=== PATIENT | female | born 1975 ===

== ENCOUNTER 2018-02-17 06:18 | Day surgery (SDC) | payer BC ==
[2018-02-08 13:41] VITALS: BMI 27.9
[2018-02-17 06:51] VITALS: RESP 18; O2SAT 100
[2018-02-17] MEDS ORDERED: Lidocaine 2% MPF (5 ml) Inj INFIL ONE (07:14)
[2018-02-17] MEDS ORDERED: Bupivacaine HCl 0.5% PF (30 ml) Inj IJ ONE (07:14)
[2018-02-17] MEDS ORDERED: ceFAZolin 2 GM in Sodium Chloride 0.9% 100 ML IVPB ONE (07:14)
[2018-02-17] MEDS ORDERED: Propofol 10 mg/ml Inj (20 ML) ONE ×2 (07:15→08:32)
[2018-02-17] MEDS ORDERED: Phenylephrine 10 mg/ml Inj ONE (07:15)
[2018-02-17] MEDS ORDERED: Midazolam 2 MG/2 ML VIAL ONE (07:15)
[2018-02-17] MEDS ORDERED: Succinylcholine 200 mg/10 ml Inj IV ONE (07:15)
[2018-02-17] MEDS ORDERED: ePHEDrine 50 mg/ml Inj ONE (07:15)
--- NOTE | 2018-02-17 07:23 | CP.PCM.PN ---
Subjective - Date & Time of Evaluation Date of Evaluation: 02/17/18 Time of Evaluation: 07:18 - Subjective Subjective: Podiatry progress note for attending Dr. Cadena: 42 y/o F patient with no PMH seen and evaluated preoperativly for left Bunion and HT correction. patient states that she has the bunion since long time and it bothers her. Patient states that she is aware of her surgery today. Patient confirmed her fasting status today. Patient denies any other pedal complaint. Patient denies any recent F/N/V/C or SOB. PMH: None PSH: B/l varicose veins. Allergies: none. Social Hx: Denies smoking, EtOH use or illicit drug use. Objective - Vital Signs/Intake and Output Vital Signs (last 24 hours): Temp Pulse Resp BP Pulse Ox 97.7 F 52 L 18 122/81 100 02/17/18 06:49 02/17/18 06:54 02/17/18 06:49 02/17/18 06:49 02/17/18 06:49 - Medications Medications: Current Medications Bupivacaine HCl (Marcaine 0.5% Pf (30 Ml)) 1 ml IJ ONCE ONE Stop: 02/17/18 07:15 Cefazolin Sodium 2 gm/ Sodium (Chloride) 100 mls @ 100 mls/hr IVPB ONCE ONE; Protocol Stop: 02/17/18 08:13 Sodium Chloride 1,000 ml/ IV (SUPPLIES) 1,000 mls @ 4,708.26 mls/hr IV ONCE ONE Stop: 02/17/18 07:26 Lidocaine HCl (Lidocaine 2% 20ml Vial) 1 ml INFIL ONCE ONE Stop: 02/17/18 07:15 - Constitutional Appears: Well, Non-toxic, No Acute Distress - Head Exam Head Exam: ATRAUMATIC, NORMOCEPHALIC - Extremities Exam Additional comments: Left LE focused exam: Vasc: DP/PT 2/4. cap refill < 3 sec in all digits. Temp gradient warm to cool from proximal to distal. No edema. Neuro: gross and protective sensations are intact.Derm: No open lesions, No clinical signs of active infection. Derm: No open lesions, No clinical signs of active infection. MSK: muscle power intact 5/5 in all groups. Passive and active ROM of ankle J, STJ and MTJ are WNL. Hypermobile 1st ray. HAV deformity. - Neurological Exam Neurological Exam: Alert, Awake, Oriented x3 - Psychiatric Exam Psychiatric exam: Normal Affect, Normal Mood Assessment and Plan - Assessment and Plan (Free Text) Assessment: 41 y/o F patient seen and evaluated at the bed side preoperatively for left Bunion and HT correction. Plan: Patient seen and evaluated at the bedside Pt was explained procedure and post-operative course Pt understands all risks, benefits and Pt was seen and examined in SDS Pt NPO status was confirmed All Pre-op testing and clearance was in the chart Pt has exhausted all conservative treatment at this time and is opting for surgical inteAll pt's questions were answered to satisfaction No guarantees were made Benefits, risks and complications of procedure explained to the patient Pt will follow-up with Dr. randolph in her office upon discharge.
--- NOTE | 2018-02-17 07:27 | CP.SDSHP ---
Same Day Surgery H & P - History Proposed Procedure: Left Lapidus, left 2nd Met osteotomy and correction of left 2nd hammer toe Pre-Op Diagnosis: Left Bunion and 2nd hammer toe. - Previous Medical/Surgical History Previous Surgical History: B/L varicose viens surgery - Allergies Allergies: Allergies No Known Allergies Allergy (Verified 02/17/18 06:29) - Physical Exam Vital Signs: Vital Signs 02/17/18 02/17/18 06:49 06:54 Temperature 97.7 F Pulse Rate 52 L 52 L Respiratory 18 Rate Blood Pressure 122/81 O2 Sat by Pulse 100 Oximetry - {Optional Preform as Required} Integument: Other (Left HAV. Hammer toe) - Date & Time Date: 02/17/18 Time: 07:27 Short Stay Discharge - Short Stay Discharge Admitting Diagnosis/Reason for Visit: M20.11 Disposition: HOME/ ROUTINE Referrals: Tristen Oh [Primary Care Provider] - Additional Instructions (Diet, Activity): -Patient in good/stable condition for discharge home -Pt to resume medications per medical reconciliation -Resume regular diet - Please keep dressing clean, dry, & intact to surgical site -Use plastic bag over bandage for showering -Strict NWB to the left LE. Ambulate using crutches -Call clinic if you see signs of infection (redness, swelling, malodor) -Please make an appointment to see Dr. Hopson in office within 1 week for post-op check Progress Note/Discharge Note with Instructions: - Patient evaluated bedside in recovery s/p left Lapidus, Left 2nd met Leena osteotomy, Left 2nd HT correction. - After surgical procedure patient in NAD. - (+) Void, (+) Appetite - Capillary refill time <3s and NVS intact. - Patient denies complaints at this time. - Post operative instructions and plan of care explained to patient at length. - Patient. acknowledges verbal understanding. - Patient stable for Discharge per podiatric surgery
[2018-02-17] MEDS ORDERED: ceFAZolin IV 2 gm in Dextrose 2 GM/50 ML BAG IVPB ONE (07:45)
[2018-02-17] MEDS ORDERED: Lactated Ringer's 1,000 ML IV ONE ×2 (07:50→08:30)
[2018-02-17] MEDS ORDERED: Lidocaine 2% Inj (20ml) IJ ONE (08:00)
[2018-02-17] MEDS ORDERED: Bupivacaine 0.25% Inj(30mL) IJ ONE ×2 (08:00)
[2018-02-17] MEDS ORDERED: Oxycodone/Acetaminophen 5/325 mg Tab PO PRN ×2 (08:56)
[2018-02-17] MEDS ORDERED: Sevoflurane - Inhalation Anesthetic Liq (250 ml) ONE (10:04)
--- NOTE | 2018-02-17 10:59 | PCM.SURG1 ---
Surgeon's Initial Post Op Note - Surgeon's Notes Surgeon: Nicole Lake. DPM Poultry Farmworker: Herminia Harding. DPM/PGY3, Gina Garcia. DPM/PGY2 Type of Anesthesia: IV Sedation, Local Anesthesia Administered By: Dr. Willingham Pre-Operative Diagnosis: Left foot HAV. Left 2nd hammer toe. Operative Findings: See Dictation. Materials: -3.0 headless screws (1) 32 and (1) 34. - 2.7 1st met fusion plate. - 2.7 VA locking screws (4) 20 and (1) 18. - 2.4 cannulated screw (1) 12. - 2.4 headless screw (2) 12. - 2-0, 3-0 and 4- 0 Vicryl. - 4-0 Nylon. - 4-0 Monocryl. Injectables: Intraoperative injection of total of 20 cc of 0.25% bupivacaine plain. Post-Operative Diagnosis: Same Operation Performed: - Left 1st met cuniform fusion (Lapidus). - 2nd left metatarsal bone Leena osteotomy. - 2nd left hammer toe correction. Specimen/Specimens Removed: None Estimated Blood Loss: EBL {In ML}: 50 Blood Products Given: N/A Drains Used: No Drains Post-Op Condition: Good Date of Surgery/Procedure: 02/17/18 Time of Surgery/Procedure: 11:36
[2018-02-17] MEDS ORDERED: Liquid Adhesive TOP ONE (11:17)
[2018-02-17] MEDS ORDERED: Lidocaine 2% MPF (5 ml) Inj ONE (11:47)
[2018-02-17] MEDS ORDERED: Bupivacaine 0.25% 50 ML INJ IJ ONE (11:47)
[2018-02-17] MEDS ORDERED: HYDROmorphone 0.5 mg/0.5 ml ISec IVP PRN (11:53)
[2018-02-17 14:21] VITALS: BP 124/78; PULSE 66; TEMP 98
--- NOTE | 2018-02-18 15:20 | RAD ---
Date of service: 02/17/2018 PROCEDURE: Left Foot Radiographs. HISTORY: S/P left foot bunion surgery and 2nd HT correction COMPARISON: None. FINDINGS: BONES: Expected postoperative findings 1st cuneiform 1st metatarsal. JOINTS: Expected postoperative findings 2nd digit including Oleg wire and solitary orthopedic screw. SOFT TISSUES: Soft tissue swelling likely postoperative. OTHER FINDINGS: None. IMPRESSION: Satisfactory postoperative status.
--- NOTE | 2018-02-22 08:29 | OP ---
PROCEDURE DATE: 02/15/2018 PREOPERATIVE DIAGNOSES: 1. Hallux abductovalgus deformity of left foot. 2. Plantarflexed elongated second metatarsal of the left foot. 3. Hammertoe deformity of second proximal interphalangeal joint, left foot. POSTOPERATIVE DIAGNOSES: 1.. Hallux abductovalgus deformity of left foot. 2. Plantarflexed elongated second metatarsal of the left foot. 3. Hammertoe deformity of second proximal interphalangeal joint, left foot. PROCEDURES: 1. Lapidus bunionectomy of first metatarsal cuneiform joint including wedge resection of articular cartilage and fixation with plate and screw. 2. Cheilectomy of distal aspect first metatarsal head, left foot. 3. Leena osteotomy/shortening osteotomy of second metatarsal head with screw fixation, left foot. 4. Arthrodesis of second proximal interphalangeal joint with K wire fixation of the left foot. SURGEON: Nicole Hopson DPM RN RADIATION ONCOLOGY: Kaylen Ruiz DPM, PGY-3; Gina Bill DPM, PGY-2. ANESTHESIA ADMINISTERED BY: TYPE OF ANESTHESIA: MAC IV sedation with local injection. INDICATIONS: The patient is a 42-year-old female with the above mentioned diagnoses. The patient was seen and treated on outpatient basis by Dr. Hopson in her office, but she has exhausted multiple forms of conservative treatment options at this time. The patient now seeks surgical intervention. All risks, benefits, and possible complications for the proposed procedure have been explained to the patient at length. The patient verbalized understanding and wished to proceed. All questions were answered. No guarantees were given nor implied. Consent was signed, and n.p.o. status was confirmed prior to taking the patient into the operating room. DESCRIPTION OF PROCEDURE: The patient was brought into the operating room and placed on the operating room table in the supine position. A well-padded pneumatic ankle tourniquet was applied in a supramalleolar position to patient's left ankle. A local injection consisting of 20 mL of 0.25% Marcaine plain with 2% lidocaine plain was introduced via local block fashion to the patient's left foot. Once local anesthesia was achieved, the foot was then prepped and draped in the usual sterile manner, and the procedure was begun. PROCEDURE #1: Lapidus bunionectomy of first metatarsal cuneiform joint including wedge resection of articular cartilage and fixation with plate and screw on the patient's left foot. Our attention was now directed to the first tarsometatarsal joint of the patient's left foot. Using a #15 blade, an approximately 6 cm linear longitudinal incision was made over the dorsal aspect of the first metatarsal joint and extending distally. Care was taken to avoid any vital neurovascular structures and incision was made along the medial aspect of the extensor hallucis longus tendon. Care was taken to avoid any vital neurovascular structures and bleeders were cauterized as necessary. Next, a combination of sharp and blunt tissue dissection was utilized to continue the incision down through subcutaneous tissue level. Once the periosteal tissue was identified, a #15 blade was utilized to make a linear incision over the capsule and periosteum. Using a Helotes elevator, the periosteum was then reflected medially and laterally thus exposing the first tarsometatarsal joint in the operative field. A sagittal saw was then used to make a through and through osteotomy at the base of the first metatarsal, oriented in the perpendicular fashion to the shaft. A wedge of bone was then resected and passed the operative field. Next, a sagittal saw was used to make a through and through cut of bone at the distal aspect of the medial cuneiform oriented in a parallel fashion to the base of the second metatarsal and the wedge of bone was passed from the field. Using a rongeur, all remaining cartilaginous pieces from the joint was then resected and passed from the field. Surgical site was then flushed with copious amounts of sterile normal saline solution. Next, a 0.062 K-wire was utilized to perform subchondral drilling to the base of the first metatarsal in the distal aspect at the medial cuneiform with healthy cancellous bleeding bone achieved. Next, manual reduction was utilized to place the first metatarsal cuneiform joint into a more corrected anatomic position and this included dorsiflexing the first metatarsophalangeal joint in order to plantarflex the first metatarsal. The correction was then temporarily fixated using passing K-wires across the joint. The first K-wire was inserted in a retrograde fashion from dorsal distal to plantar proximal. From the proximal one-third of the first metatarsal in the central aspect of the medial cuneiform. Alignment of the K-wire was then confirmed with intraoperative fluoroscopy. The second K-wire was then inserted in a retrograde fashion from the mid shaft of the first metatarsal into the lateral cuneiform. Again, intraoperative imaging was utilized in order to confirm adequate positioning of the K-wires and correction of the deformity, which did appear to be excellent at this time. Next, utilizing standard AO principles and technique, a Synthes 3.0 mm headless compression screw measuring 34 mm and a 3.0 headless compression screw measuring 32 mm were then inserted over the K-wire with excellent compression achieved across the arthrodesis site. Excellent correction of the deformity is appeared to be achieved at this time. The surgical site was then flushed with copious amounts of sterile normal saline solution and any remaining sharp bone edges were then rasped down using a bone rongeur and flushed again with normal saline solution. Our attention was then directed to the dorsal aspect of the first metatarsal cuneiform joint, which did appear to be in excellent anatomic position at this time. Next, a Synthes 2.7 mm first tarsometatarsal fusion plate was temporarily fixated using K-wires over the dorsomedial aspect of the first metatarsal cuneiform joint. Placement of the plate was then confirmed using intraoperative fluoroscopy. Next, using standard AO principles and technique, 2.7 variable-angle locking screw were then inserted in the plate. Three screws were placed in the distal aspect and 2 screws placed proximally of various lengths. At this time, intraoperative fluoroscopy was utilized to check the correction of the deformity, which did appear to be excellent at this time with excellent apposition of the plate to the bone. The surgical site was then flushed with copious amounts of sterile normal saline solution. The periosteal layer was then approximated using 2-0 Vicryl. Subcutaneous tissue layer reapproximated using 3-0 Vicryl. Subcuticular tissue reapproximated using 4-0 Vicryl and skin edge reapproximated using 4-0 Monocryl suture. PROCEDURE #2: Cheilectomy of distal aspect of first metatarsal head, left foot. Our attention was now directed to the dorsomedial aspect of the first metatarsophalangeal joint. Using a fresh #15 blade, an approximately 4 cm linear longitudinal incision was made over the dorsal aspect of the first metatarsophalangeal joint with care taken making incision medial to the extensor hallucis longus tendon and involved the contour of the deformity. Care was taken to avoid vital neurovascular structures at this time. Next, the incision was then deepened using a combination of blunt and sharp tissue dissection, down to the level of the first metatarsophalangeal joint capsule. Utilizing a fresh #15 blade, a T-capsulotomy was performed over the capsule and a Helotes elevator was utilized to reflect the periosteum both medially and laterally, thus exposing the first metatarsophalangeal joint into the operative site. Next, a #15 blade was utilized to remove any remaining soft tissue attachments of the first metatarsal head at the medial aspect. Next, using a sagittal saw, the medial bony eminence and the dorsal bony eminence were then resected from the metatarsal head with excellent correction of the deformity achieved. Surgical site was then flushed with copious amounts of sterile normal saline solution. PROCEDURE #3: Leena osteotomy/shortening osteotomy of the second metatarsal with screw fixation of the left foot. Our attention was then directed over the dorsal aspect of the second metatarsophalangeal joint at the patient's left foot, where an approximately 4 cm linear longitudinal incision was made directly lateral to the second metatarsal head and directly lateral to the extensor tendon. Care was taken to identify and retract all vital neurovascular structures. All bleeders were cauterized as necessary. Care was also taken to mobilize the extensor tendon which was then retracted into the lateral position. Next, the capsule of the second metatarsophalangeal joint was now identified and a fresh #15 blade was utilized to make a linear incision directly over the capsule at the dorsal aspect. A Helotes elevator was utilized to reflect the capsule medially and laterally after exposing the second metatarsal head into the operative field. At this time, a sagittal saw was utilized to make a [id number] osteotomy of the second metatarsal head oriented in a dorsal distal to plantar proximal orientation in a retrograde fashion with care taken to make the osteotomy parallel to the weightbearing surface of the patient's foot. [id number] osteotomy was then created in order to allow for the head of the second metatarsal to retract proximal plantar in relation to the second metatarsal. At this time, a K-wire was then placed perpendicular to the osteotomy site with intraoperative fluoroscopy utilized to check its position and using standard AO principles and techniques, a Synthes headless 2.4 compression screw measuring 12 mm was then inserted across the osteotomy with excellent compression achieved. Again, there was excellent correction of the deformity at this time, which was also appreciated on intraoperatively with fluoroscopy. K-wire was then removed and a bone rongeur was utilized to remove any remaining dorsal bony shelf, which was then passed from the operative field. PROCEDURE #4: Arthrodesis of second proximal interphalangeal joint with K-wire fixation of the patient's left foot. Our attention was now directed to the proximal interphalangeal joint of the patient's second digit of the left foot where a contraction deformity did appear to be present at this time. Our original incision over the second metatarsophalangeal joint was then extended approximately 2 cm distally and again care was taken to avoid all vital neurovascular structures at this time. All bleeders were cauterized and ligated as necessary. Next, the extensor tendon was noted crossing in a linear fashion over the second proximal interphalangeal joint, which was then tenectomized and reflected distally and proximally. Next, a #15 blade was utilized to reflect the medial and lateral collateral ligament from the proximal phalanx head and using a micro sagittal saw, the head of the proximal phalanx was then resected and passed from the operative field. Correction of the deformity, which appeared to excellent at this time with a rectus toe achieved. Next a 0.045 K-wire was then driven into the distal aspect of the second digit proximal phalanx and was then retrograded into the base of the middle phalanx and out the toe. Once of the K-wire was achieved, the K-wire was then retrograded back across the proximal interphalangeal joint and into the head of the second metatarsal with rectus toe which was then confirmed using intraoperative fluoroscopy. The surgical site was then flushed with copious amounts of sterile normal saline solution. The incision site at the second metatarsal was then coapted using 2-0 and 3-0 Vicryl to coapt the capsular and periosteal layers. The subcuticular layer was reapproximated using 4-0 Vicryl and skin edges were reapproximated using 4-0 nylon at the level of the proximal interphalangeal joint at the second digit. The extensor tendon was reapproximated using 2-0 Vicryl. The subcuticular tissue was reapproximated using 4-0 Vicryl and skin edges were reapproximated using 4-0 nylon. The incision over the first metatarsophalangeal joint was then reapproximated using 2-0 and 3-0 Vicryl at the capsular level. The subcuticular tissue was then reapproximated using 4-0 Vicryl and skin edges were reapproximated using 4-0 Monocryl suture. Additional 20 mL of 0.25% Marcaine plain was then introduced into the patient's left forefoot. Postoperative bandages included Steri Strips, Betadine soaked Adaptic, 4 x 4 gauze, Esther, Kerlix and a well-padded posterior splint was then applied to the patient's left lower extremity with the ankle joint in neutral position. POSTOPERATIVE CONDITION: The patient tolerated the procedure and the anesthesia well with no apparent complications or complaints. The patient was escorted from the OR to the recovery room with vital signs stable and neurovascular status intact to the patient's left foot. The patient will be nonweightbearing with crutches and will follow up with Dr. Hopson in the office within one week. Kaylen Ruiz DPM Nicole Hopson DPM
== END 2018-02-17 14:35 | disposition home or self-care (01) ==
LOC: H.OPSURG 06:18
PROVIDERS: ATTEND Podiatrist Foot & Ankle Surgery
DX: M20.12 Hallux valgus (acquired), left foot (principal); D50.9 Iron deficiency anemia, unspecified; M20.42 Other hammer toe(s) (acquired), left foot
CPT/HCPCS: 28285; 28297; 28308; 73630; 88304; 97161; G8978; G8979; G8980; J0330; J0690; J1885; J2001; J2250; J2370; J2405; J2704; J3010; J7030; J7120